=== PATIENT | female | born 1955 | race Caucasian/White ===

== ENCOUNTER 2016-11-20 15:22 | Emergency (ER) | payer OTHER ==
[2016-11-20 15:28] VITALS: BP 161/82; PULSE 68; TEMP 97.7; BMI 26.6
--- NOTE | 2016-11-20 16:06 | PDOC ---
History of Present Illness - General Chief Complaint: Injury Stated Complaint: NOSE INJURY Time Seen by Provider: 11/20/16 15:37 History Source: Patient - History of Present Illness Timing/Duration: other (yesterday) Past History - Past Medical History Allergies/Adverse Reactions: Allergies Allergy/AdvReac Type Severity Reaction Status Date / Time No Known Allergies Allergy Verified 11/20/16 15:24 Home Medications: Ambulatory Orders Amlodipine Besylate [Norvasc] 5 mg PO DAILY 08/03/11 BUPROPion HCL [Wellbutrin] 400 mg PO DAILY 08/03/11 Lisinopril [Prinivil] 20 mg PO DAILY 08/03/11 HTN: Yes Psychiatric Problems: Yes (depression) - Immunization History Immunization Up to Date: Yes - Suicide/Smoking/Psychosocial Hx Smoking Status: No Smoking History: Never smoked Have you smoked in the past 12 months: No Number of Cigarettes Smoked Daily: 0 If you are a former smoker, when did you quit?: 0 Cigars Per Day: 0 Information on smoking cessation initiated: No Hx Alcohol Use: No Drug/Substance Use Hx: No Substance Use Type: None Review of Systems - Review of Systems Constitutional: No: Chills, Fever HEENTM: Yes: Nose Pain *Physical Exam - Vital Signs Last Vital Signs Temp Pulse Resp BP Pulse Ox 97.7 F 68 18 161/82 100 11/20/16 15:25 11/20/16 15:25 11/20/16 15:25 11/20/16 15:25 11/20/16 15:25 - Physical Exam General Appearance: Yes: Appropriately Dressed. No: Apparent Distress HEENT: positive: Normal Voice, Other (contusion to nasal bridge, no swelling/ deformity, no e/o septal hematoma, no epistaxis) Neck: positive: Supple Respiratory/Chest: negative: Respiratory Distress Integumentary: positive: Dry, Warm Neurologic: positive: Fully Oriented, Alert, Normal Mood/Affect Medical Decision Making - Medical Decision Making 11/20/16 16:03 61 yo F, no sig hx, p/w injury to nose after her car trunk struck her nose yesterday. No epistaxis. See exam Nasal contusion No e/o serious injury at this time Declines tetanus -DC w/ wound check as needed 11/20/16 16:06 *DC/Admit/Observation/Transfer Diagnosis at time of Disposition: Nasal contusion Qualifiers: Encounter type: initial encounter Qualified Code(s): S00.33XA - Contusion of nose, initial encounter - Discharge Dispostion Disposition: HOME Condition at time of disposition: Good - Patient Instructions Printed Discharge Instructions: Contusion Additional Instructions: Apply bacitracin or Neosporin once daily for the next 5 days. Please return to ED for any signs of infection such as worsening pain, swelling , redness, discharge or fever
== END 2016-11-20 16:04 | disposition home or self-care (01) ==
LOC: JERFT 15:22
DX: S00.33XA Contusion of nose, initial encounter (principal); I10 Essential (primary) hypertension; F41.9 Anxiety disorder, unspecified; V48.0XXA Car driver injured in noncollision transport accident in nontraffic accident, initial encounter; Y92.488 Other paved roadways as the place of occurrence of the external cause; Y93.89 Activity, other specified; Y99.8 Other external cause status
CPT/HCPCS: 99281-25

== ENCOUNTER 2018-02-17 09:46 | Emergency (ER) | payer OTHER ==
[2018-02-17] MEDS ORDERED: ALBUTEROL SO4 2.5/IPRATROPIUM 0.5 INH SOL 3 ML VIAL.NEB. NEB ONE ×2 (09:58→10:07)
[2018-02-17] MEDS ORDERED: predniSONE 20 MG TABLET (UD) PO ONE (09:58)
[2018-02-17 10:07] VITALS: TEMP 98.3; BMI 25.8
--- NOTE | 2018-02-17 10:07 | PDOC ---
History of Present Illness - General Stated Complaint: RESPIRATORY Time Seen by Provider: 02/17/18 09:51 - History of Present Illness Initial Comments: 02/17/18 09:59 62yo F hx HTN, anxiety presents to the ED with 3 week so of persistent cough. Pt reports diagnosis with PNA on Thanksgiving s/p treatment with cefuroxime. At the time was having productive cough, fevers. SInce then fevers have resolved. Pt reports cough has been persistent since PNA, but now no longer productive. Saw PMD who diagnosed her with post nasal drip last week. 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 Has been unable to sleep 2/2 cough. Pt also reporting 1 episode of NBNB vomiting last night after a coughing fit. SHe attempted to work today but due to the cough a co- worker brought her down for evaluation. Denies CP/SOB. Has tried her inhaler with no improvement. DENies chills. Denies dizziness, headache, weakness/ numbness, abd pain, N/V/D, LE edema. Past History - Past Medical History Allergies/Adverse Reactions: Allergies Allergy/AdvReac Type Severity Reaction Status Date / Time No Known Allergies Allergy Verified 02/17/18 10:07 Home Medications: Ambulatory Orders Amlodipine Besylate [Norvasc] 5 mg PO DAILY 08/03/11 BUPROPion HCL [Wellbutrin] 400 mg PO DAILY 08/03/11 Lisinopril [Prinivil] 20 mg PO DAILY 08/03/11 Alprazolam [Xanax] 0.25 mg PO DAILY 08/19/17 Benzonatate [Tessalon Pearls -] 200 mg PO TID #20 cap 08/19/17 Hydrocodone Bit/Homatrop Me-Br [Hydrocodone-Homatropine Syrup] 5 ml PO QID #100 ml MDD 20 ml 08/19/17 Omeprazole 20 mg PO DAILY 08/19/17 COPD: No HTN: Yes Psychiatric Problems: Yes (depression) - Immunization History Immunization Up to Date: Yes - Suicide/Smoking/Psychosocial Hx Smoking Status: No Smoking History: Never smoked Have you smoked in the past 12 months: No Number of Cigarettes Smoked Daily: 0 If you are a former smoker, when did you quit?: 0 Cigars Per Day: 0 Hx Alcohol Use: No Drug/Substance Use Hx: No Substance Use Type: None Review of Systems - Review of Systems Comments:: 02/17/18 10:07 GENERAL/CONSTITUTIONAL: No fever or chills. No weakness. HEAD, EYES, EARS, NOSE AND THROAT: No change in vision. No ear pain or discharge. No sore throat. GASTROINTESTINAL: +nausea, vomiting, no diarrhea or constipation. GENITOURINARY: No dysuria, frequency, or change in urination. CARDIOVASCULAR: No chest pain or shortness of breath. RESPIRATORY: +cough, no wheezing, or hemoptysis. MUSCULOSKELETAL: No joint or muscle swelling or pain. No neck or back pain. SKIN: No rash NEUROLOGIC: No headache, vertigo, loss of consciousness, or change in strength/ sensation. ENDOCRINE: No increased thirst. No abnormal weight change. HEMATOLOGIC/LYMPHATIC: No anemia, easy bleeding, or history of blood clots. ALLERGIC/IMMUNOLOGIC: No hives or skin allergy. *Physical Exam - Physical Exam Comments: 02/17/18 10:08 GENERAL: Awake, alert, and fully oriented, in no acute distress. Frequent dry cough EYES: PERRLA, EOMI, sclera anicteric, conjunctiva clear ENT: Nares patent, oropharynx clear without exudates. Moist mucosa NECK: Normal ROM, supple, no lymphadenopathy, JVD, or masses LUNGS: Breath sounds equal, clear to auscultation bilaterally. No wheezes, and no crackles. No increased WOB. HEART: Regular rate and rhythm, normal S1 and S2, no murmurs, rubs or gallops ABDOMEN: Soft, nontender, normoactive bowel sounds. No guarding, no rebound. No masses EXTREMITIES: Normal range of motion, no edema. No cords, erythema, or tenderness NEUROLOGICAL: Normal speech, cranial nerves intact, equal strength and sensation b/l SKIN: Warm, Dry, normal turgor, no rashes or lesions noted. ED Treatment Course - LABORATORY CBC & Chemistry Diagram: 02/17/18 10:14 02/17/18 10:14 - RADIOLOGY Radiology Studies Ordered: Category Date Time Status CHEST PA & LAT [RAD] Stat Radiology 02/17/18 09:58 Ordered Medical Decision Making - Medical Decision Making 02/17/18 10:09 62yo F presents to the ED with persistent cough since she was diagnosed with PNA , now post abx treatment. Vitals unremarkable, O2sat 95%. Lungs clear, but pt with constant dry cough consistent with post viral bronchitis. No longer having fevers/chills, unlikely acute infection. Plan to treat with duonebs, steroids, saline nebs. Will check basic labs, CXR, reassess. 02/17/18 11:40 No improvement with duoneb, but significant improvement in coughing with saline neb Minimally coughing at this time Vitals wnl Lungs remain clear Labs/CXR wnl Pt feels better, clinically stable for DC I discussed the physical exam findings, ancillary test results and final diagnoses with the patient. I answered all of the patient's questions. The patient was satisfied with the care received and felt comfortable with the discharge plan and treatment plan. The patient will call their primary care physician within 24 hours to arrange follow-up and will return to the Emergency Department with any new, persistent or worsening symptoms. *DC/Admit/Observation/Transfer Diagnosis at time of Disposition: Bronchitis, Cough, Post-tussive emesis - Discharge Dispostion Disposition: HOME Condition at time of disposition: Improved Decision to Admit order: No - Referrals - Patient Instructions Printed Discharge Instructions: DI for Acute Bronchitis Additional Instructions: Follow up with your primary doctor within 1-2 days Use saline nebulizer's as needed for your cough. Use a humidifier at home Take the prednisone daily, starting tomorrow for 4 more days Return to the emergency department if you have any new, worsening, or concerning symptoms - Post Discharge Activity Forms/Work/School Notes: Back to Work - Attestations Physician Attestion: 02/17/18 11:43 I, Dr. Miguel Woody MD, attest that this document has been prepared under my direction and personally reviewed by me in its entirety. I further attest, that it accurately reflects all work, treatment, procedures and medical decision -making performed by me.
[2018-02-17] MEDS ORDERED: predniSONE 10 MG TABLET (UD) ONE (10:10)
[2018-02-17] MEDS ORDERED: predniSONE 20 MG TABLET (UD) ONE (10:10)
[2018-02-17] MEDS ORDERED: SODIUM CHLORIDE FOR INHALATION 3 ML VIAL.NEB IH ONE (10:25)
[2018-02-17 10:42] LABS: BASO % 0.7 % (0-2.0); EOS % 4.5 % (0-4.5); HEMATOCRIT 40.2 % (32.4-45.2); HEMOGLOBIN 14.1 GM/dL (10.7-15.3); LYMPH % 40.3 % (8-40); MCH 32.3 pg (25.7-33.7); MCHC 35.2 g/dl (32.0-36.0); MEAN CELL VOLUME 91.6 fl (80-96); MEAN PLT VOLUME 8.5 fl (7.5-11.1); MONO % 9.8 % (3.8-10.2); NEUT % 44.7 % (42.8-82.8); PLATELET COUNT 208 K/MM3 (134-434); RBC 4.38 M/mm3 (3.60-5.2); RDW 13.4 % (11.6-15.6); WHITE BLOOD COUNT 4.9 K/mm3 (4.0-10.0)
[2018-02-17 11:12] LABS: ALBUMIN 3.8 g/dl (3.4-5.0); ALK PHOS 82 U/L (45-117); ANION GAP 10 MMOL/L (8-16); BILIRUBIN,TOTAL 0.3 mg/dL (0.2-1); BLOOD UREA NITROGEN 15 mg/dL (7-18); CHLORIDE 106 mmol/L (98-107); CO2 23 mmol/L (21-32); CREATININE 0.8 mg/dL (0.55-1.3); GLUCOSE,RANDOM 95 mg/dL (74-106); POTASSIUM 4.2 mmol/L (3.5-5.1); SGOT/AST 30 U/L (15-37); SGPT/ALT 46 U/L (13-61); SODIUM 139 mmol/L (136-145); TOT PROT 7.1 g/dl (6.4-8.2)
[2018-02-17 11:58] VITALS: BP 148/68; PULSE 71
== END 2018-02-17 12:03 | disposition home or self-care (01) ==
LOC: JER 09:46
PROC: 3E0F7GC Introduction of Other Therapeutic Substance into Respiratory Tract, Via Natural or Artificial Opening (ICD-10-PCS; principal; 2018-02-17)
DX: J40 Bronchitis, not specified as acute or chronic (principal); R11.10 Vomiting, unspecified; R05 Cough; I10 Essential (primary) hypertension; F32.9 Major depressive disorder, single episode, unspecified
CPT/HCPCS: 36415; 71046-TC-FY; 80053; 85025; 99282-25

== ENCOUNTER 2018-08-20 15:49 | Emergency (ER) | payer OTHER | END 2018-08-20 16:35 | disposition home or self-care (01) | LOC: JERFT 15:49 ==